=== PATIENT | female | born 1950 | race Caucasian/White ===

== ENCOUNTER → 2016-11-05 | Outpatient (CLI) | payer OTHER ==
[2010-12-08 09:39] VITALS: BP 119/82
--- NOTE | 2016-11-05 21:06 | DI ---
MRI BRAIN W/O CN,11/05/2016 1:03 PM: Clinical History: Benign head tremors. Previous Exam: None at this facility. Findings: Multiplanar MR images are obtained through the brain without contrast. There is mild diffuse age-related volume loss. There are multiple scattered areas of increased T2 and FLAIR signal. There is no abnormally restricted diffusion. Incidental note is made of hyperostosis frontalis. The paranasal sinuses are unremarkable. The major vascular flow voids are unremarkable. There is no evidence of Chiari malformation. The midline structures are unremarkable. Impression: Diffuse age-related volume loss and scattered areas of increased T2 and FLAIR signal throughout the w camila matter most consistent with small vessel ischemic changes.
== END ==
LOC: MRI 12:58
PROVIDERS: ATTEND Physician Assistant
DX: G25.0 Essential tremor (principal); I99.8 Other disorder of circulatory system
CPT/HCPCS: 70551

== ENCOUNTER → 2017-01-29 | Outpatient (CLI) | payer OTHER ==
[2010-12-08 09:39] VITALS: BP 119/82
[2017-01-29 11:14] LABS: BLOOD UREA NITROGEN 14 mg/dL (7-22); BUN/CREATININE RATIO 23.33 (6-20); CALCIUM 9.6 mg/dL (8.7-10.7); CHOL/HDL RATIO 3.62 RATIO (0-4.0); EST GLOMERULAR FILTRATION > 60 (>60 ml/min/1.73m(2)); HDL CHOLESTEROL 43 mg/dL (40-150); SERUM ALBUMIN 3.9 g/dL (3.5-4.8); SERUM CHOLESTEROL 156 mg/dL (120-200)
== END ==
LOC: LAB 10:24
PROVIDERS: ATTEND Family Medicine
DX: E03.9 Hypothyroidism, unspecified (principal); E78.1 Pure hyperglyceridemia; I10 Essential (primary) hypertension
CPT/HCPCS: 36415; 80053; 80061; 84439

== ENCOUNTER → 2017-02-03 | Outpatient (CLI) | payer OTHER ==
[2010-12-08 09:39] VITALS: BP 119/82
== END ==
LOC: MMPC 02-03 10:00
PROVIDERS: ATTEND Podiatrist Foot & Ankle Surgery
DX: M79.671 Pain in right foot (principal); L60.3 Nail dystrophy; B35.1 Tinea unguium
CPT/HCPCS: 11721 ×2; 99213; G0463

== ENCOUNTER → 2017-02-10 | Outpatient (CLI) | payer OTHER ==
[2010-12-08 09:39] VITALS: BP 119/82
[2017-02-10 10:06] LABS: HEMOGLOBIN A1C 6.39 % (4.2-6.0)
== END ==
LOC: LAB 09:33
PROVIDERS: ATTEND Family Medicine
DX: R73.09 Other abnormal glucose (principal)
CPT/HCPCS: 36415; 83036

== ENCOUNTER → 2017-02-11 | Outpatient (CLI) | payer OTHER ==
[2010-12-08 09:39] VITALS: BP 119/82
== END ==
LOC: MMPC 09:00
PROVIDERS: ATTEND Family Medicine
DX: I10 Essential (primary) hypertension (principal); E03.9 Hypothyroidism, unspecified; E78.1 Pure hyperglyceridemia; R73.09 Other abnormal glucose
CPT/HCPCS: 99213; G0463

== ENCOUNTER → 2017-04-09 | Outpatient (CLI) | payer OTHER ==
[2010-12-08 09:39] VITALS: BP 119/82
== END ==
LOC: MMPC 10:00
PROVIDERS: ATTEND Podiatrist Foot & Ankle Surgery
DX: B35.3 Tinea pedis (principal); L60.3 Nail dystrophy; B35.1 Tinea unguium; L84 Corns and callosities
CPT/HCPCS: 11721 ×2; 99212; G0463